=== PATIENT | female | born 1995 | race Caucasian/White ===

== ENCOUNTER 2018-11-06 22:40 | Emergency (ER) | payer OTHER ==
[~2018-11-06] VITALS: Ht 152.4 cm; Wt 61.7 kg
[2018-11-06 22:55] VITALS: Ht 152.4 cm; Wt 61.7 kg
[2018-11-06 23:54] VITALS: BP 114/78
== END 2018-11-06 23:54 | disposition home or self-care (01) ==
LOC: ED 22:40
DX: L03.116 Cellulitis of left lower limb (principal); Z88.8 Allergy status to other drugs, medicaments and biological substances; W57.XXXA Bitten or stung by nonvenomous insect and other nonvenomous arthropods, initial encounter; Y93.89 Activity, other specified; Y92.89 Other specified places as the place of occurrence of the external cause; Y99.8 Other external cause status
CPT/HCPCS: J2920

== ENCOUNTER 2019-04-08 20:35 | Emergency (ER) | payer OTHER ==
[~2019-04-08] VITALS: Ht 154.9 cm; Wt 61.2 kg
[2019-04-08 20:41] VITALS: BP 124/70; Ht 154.9 cm; Wt 61.2 kg
== END 2019-04-08 22:19 | disposition home or self-care (01) ==
LOC: ED 20:35
DX: J20.9 Acute bronchitis, unspecified (principal); Z88.8 Allergy status to other drugs, medicaments and biological substances
CPT/HCPCS: J7512; J7613

== ENCOUNTER 2019-05-04 17:41 | Emergency (ER) | payer OTHER ==
[~2019-05-04] VITALS: Ht 152.4 cm; Wt 61.2 kg
[2019-05-04 17:52] VITALS: BP 120/65; Ht 152.4 cm; Wt 61.2 kg
== END 2019-05-04 21:48 | disposition home or self-care (01) ==
LOC: ED 17:41
DX: J18.9 Pneumonia, unspecified organism (principal); Z88.8 Allergy status to other drugs, medicaments and biological substances